=== PATIENT | female | born 1990 | race African-American/Black ===

== ENCOUNTER 2022-04-08 15:38 | Emergency (ER) | payer OTHER ==
[2022-04-08] MEDS ORDERED: Ondansetron ODT 4 MG TAB ONE (16:20)
== END 2022-04-08 16:25 | disposition home or self-care (01) ==
LOC: CSHERS 15:38
DX: R11.0 Nausea (principal); I10 Essential (primary) hypertension; F17.210 Nicotine dependence, cigarettes, uncomplicated
CPT/HCPCS: 36416; 99283; Q0162

== ENCOUNTER 2025-05-05 12:44 | Observation (INO) | payer OTHER, SELFPAY ==
[~2025-05-05 12:44] MED LIST: Iopamidol 370 76% 100 ML VIAL ONE
[2025-05-05 13:54] LABS: BHCG - Serum Negative (NEGATIVE); Pregs Control Background? CLEAR/WHITE (CLR/WHITE); Pregs Control Bar Appear? YES (CONTROL BAR)
[2025-05-05 15:16] LABS: INR-International Normal Ratio 1.0; PTT 29.9 sec (22.0-33.0); Prothrombin Time 10.9 sec (9.5-12.1)
[2025-05-05 15:16] LABS: Troponin I 0.017 ng/mL (< 0.028)
[2025-05-05] MEDS ORDERED: Enoxaparin 100 MG (1 mL) SYRINGE ONE (15:17)
[2025-05-05] MEDS ORDERED: Senokot S 8.6-50 MG TAB PO PRN (15:45)
[2025-05-05] MEDS ORDERED: Ondansetron PF 4 MG/2 ML Vial IVP PRN (15:45)
[2025-05-05] MEDS ORDERED: Melatonin 3 MG TAB PO PRN (15:45)
[2025-05-05] MEDS ORDERED: Communication Order-Pharmacy FS SCH (15:52)
[2025-05-05 16:02] LABS: ALT (SGPT) 13 U/L (Less than 34); AST (SGOT) 23 U/L (11-34); Albumin 3.5 g/dL (3.1-4.5); Alkaline Phosphatase 52 U/L (40-110); Anion Gap 11 mmol/L (10-20); BUN (Urea Nitrogen) 9 mg/dL (7.0-18.7); Bilirubin, Total 0.2 mg/dL (0.3-1.2); Calc. Creatinine Clearance 0 mL/min (70-130); Calcium 8.8 mg/dL (7.8-10.44); Carbon Dioxide 24 mmol/L (22-29); Chloride 107 mmol/L (98-107); Globulin 4.3 g/dL (2.4-3.5); Glucose 75 mg/dL (70-105); Potassium 4.2 mmol/L (3.5-5.1); Sodium 138 mmol/L (136-145)
[2025-05-05 16:50] LABS: Hematocrit 35.7 % (34.9-44.5); Hemoglobin 11.2 g/dL (12.0-15.5); Platelet Count 242 10x3/uL (150-450)
[2025-05-05 21:25] VITALS: BMI 108.8
[2025-05-05] MEDS: Ibuprofen 200 MG TAB PO SCH (21:33)
[2025-05-05 22:34] LABS: Troponin I 0.012 ng/mL (< 0.028)
[2025-05-06 01:13] LABS: Troponin I 0.018 ng/mL (< 0.028)
[2025-05-06 04:34] LABS: #Basophils Less than 0.03 10x3/uL (0.0-0.2); #Eosinophils 0.20 10x3/uL (0.0-0.5); #Monocytes 0.39 10x3/uL (0.0-1.1); #Neutrophils 2.25 10x3/uL (1.5-8.4); %Basophils 0.4 % (0.0-2.0); %Eosinophils 4.3 % (0.0-6.0); %Lymphocytes 38.1 % (18.0-47.0); %Monocytes 8.4 % (0.0-10.0); %Neutrophils 48.6 % (40.0-75.0); Hematocrit 32.5 % (34.9-44.5); Hemoglobin 10.5 g/dL (12.0-15.5); Mean Corpuscular Hemoglobin 24.8 pg (27.0-33.0); Mean Corpuscular Volume 76.8 fL (81.6-98.3); Platelet Count 236 10x3/uL (150-450); Red Blood Cell (RBC) Count 4.23 10x6/uL (3.90-5.03); White Blood Cell (WBC) Count 4.64 10x3/uL (3.5-10.5)
[2025-05-06 04:45] LABS: Anion Gap 12 mmol/L (10-20); BUN (Urea Nitrogen) 11 mg/dL (7.0-18.7); Calc. Creatinine Clearance 155 mL/min (70-130); Calcium 8.3 mg/dL (7.8-10.44); Carbon Dioxide 25 mmol/L (22-29); Chloride 107 mmol/L (98-107); Glucose 97 mg/dL (70-105); Potassium 3.8 mmol/L (3.5-5.1); Sodium 140 mmol/L (136-145)
[2025-05-06] MEDS: Acetaminophen 325 MG TAB PO PRN (05:56)
[2025-05-06] MEDS: Ketorolac Tromethamine 30 MG (1 mL) VIAL IVP SCH (06:21)
[2025-05-06] MEDS: Famotidine 20 MG TAB PO SCH (09:30)
[2025-05-06] MEDS ORDERED: Ibuprofen 200 MG TAB PO PRN (11:57)
[2025-05-06 12:16] VITALS: BP 117/66; TEMP 98.1
[2025-05-06] MEDS ORDERED: Apixaban 5 MG TAB PO SCH (21:00)
== END 2025-05-06 14:55 | disposition home or self-care (01) ==
LOC: CSHERS 12:44 → CSHERHOLD 15:24 → CSHTELE 21:05
PROVIDERS: ADMIT Internal Medicine; ATTEND Internal Medicine
DX: I26.99 Other pulmonary embolism without acute cor pulmonale (principal); F17.200 Nicotine dependence, unspecified, uncomplicated; Z90.49 Acquired absence of other specified parts of digestive tract; Z79.01 Long term (current) use of anticoagulants
CPT/HCPCS: 36415; 71275; 80048; 80053; 83880; 84484; 84703; 85014; 85018; 85025; 85049; 85610; 85730; 93005; 96372; 96374; 96375; G0378; J1650; J1885; J2270; Q9967

== ENCOUNTER 2025-08-03 12:09 | Emergency (ER) | payer OTHER ==
[2025-08-03] MEDS ORDERED: Ketorolac Tromethamine 30 MG (1 mL) VIAL ONE (13:32)
[2025-08-03] MEDS ORDERED: Ondansetron PF 4 MG/2 ML Vial ONE (13:32)
[2025-08-03 14:21] LABS: #Basophils 0.03 10x3/uL (0.0-0.2); #Eosinophils 0.09 10x3/uL (0.0-0.5); #Monocytes 0.45 10x3/uL (0.0-1.1); #Neutrophils 2.59 10x3/uL (1.5-8.4); %Basophils 0.6 % (0.0-2.0); %Eosinophils 1.8 % (0.0-6.0); %Lymphocytes 37.1 % (18.0-47.0); %Monocytes 8.9 % (0.0-10.0); %Neutrophils 51.4 % (40.0-75.0); Hematocrit 36.7 % (34.9-44.5); Hemoglobin 11.8 g/dL (12.0-15.5); Mean Corpuscular Hemoglobin 25.4 pg (27.0-33.0); Mean Corpuscular Volume 78.9 fL (81.6-98.3); Platelet Count 379 10x3/uL (150-450); Red Blood Cell (RBC) Count 4.65 10x6/uL (3.90-5.03); White Blood Cell (WBC) Count 5.04 10x3/uL (3.5-10.5)
[2025-08-03 14:42] LABS: BHCG - Serum Negative (NEGATIVE); Pregs Control Background? CLEAR/WHITE (CLR/WHITE); Pregs Control Bar Appear? YES (CONTROL BAR)
[2025-08-03 14:47] LABS: ALT (SGPT) 13 U/L (Less than 34); AST (SGOT) 21 U/L (11-34); Albumin 4.0 g/dL (3.1-4.5); Alkaline Phosphatase 56 U/L (40-110); Anion Gap 17 mmol/L (10-20); BUN (Urea Nitrogen) 9 mg/dL (7.0-18.7); Bilirubin, Total 0.2 mg/dL (0.3-1.2); Calc. Creatinine Clearance 0 mL/min (70-130); Calcium 8.7 mg/dL (7.8-10.44); Carbon Dioxide 19 mmol/L (22-29); Chloride 106 mmol/L (98-107); Glucose 73 mg/dL (70-105); Lipase 25 U/L (8-78); Potassium 4.1 mmol/L (3.5-5.1); Sodium 138 mmol/L (136-145)
== END 2025-08-03 15:56 | disposition home or self-care (01) ==
LOC: CSHERS 12:09
DX: T51.0X1A Toxic effect of ethanol, accidental (unintentional), initial encounter (principal); I10 Essential (primary) hypertension; F17.210 Nicotine dependence, cigarettes, uncomplicated; F17.290 Nicotine dependence, other tobacco product, uncomplicated; X58.XXXA Exposure to other specified factors, initial encounter
CPT/HCPCS: 36415; 80053; 83605; 83690; 84703; 85025; 93005; 96361; 96374; 96375; J1885; J2405